=== PATIENT | male | born 1955 | race African-American/Black ===

== ENCOUNTER 2018-06-13 13:33 | Emergency (ER) | payer OTHER ==
[2018-06-13 13:42] VITALS: TEMP 97.8; BMI 39.5
--- NOTE | 2018-06-13 15:05 | PDOC ---
Attending Attestation - Resident Resident Name: JosefaSadie - ED Attending Attestation I have performed the following: I have examined & evaluated the patient, The case was reviewed & discussed with the resident, I agree w/resident's findings & plan, Exceptions are as noted - HPI HPI: 06/13/18 15:04 [id number] presents with insomnia. The patient states that for the past several weeks he has been under a lot of stress at work, states that he has been having difficulty sleeping. States that he normally goes to bed approximate 6:54 PM watching some TV and and drifts off - typically wakes up around midnight unable to go back to sleep. States that he has had a lot on his mind in his mind is going constantly throughout the night making it difficult for him to go back to bed . He has been taking melatonin for the last week sometimes it helps sometimes it doesn't . The patient states that his memory has been poor recently. Patient states he has been undergoing a lot of stress at work prior to this he Follow the same schedule but was able to drift back off to sleep. The pt uli dumont associtaed n/v, visio changes, numbness/weakness/tingling, headache, neck pain, back pain , leg slweling, diarrhea, melena bpr. Pt states he has tried to increase his ecercise. he follows up with PM[facility] at [facility]. GENERAL: The patient is awake, alert, and fully oriented, Nontoxic - in no acute distress. HEAD: Normocephalic, atraumatic. EYES: extraocular movements intact, sclera anicteric, conjunctiva clear. ENT: Normal voice, Moist mucous membranes. NECK: Normal range of motion, supple LUNGS: Breath sounds equal, clear to auscultation bilaterally. No wheezes, no rhonchi, no rales. HEART: Regular rate and rhythm, normal S1 and S2 without murmur, rub or gallop. ABDOMEN: Soft, nontender, No guarding, no rebound. . No CVA tenderness EXTREMITIES: Normal range of motion, no edema. NEUROLOGICAL: No facial assymetry, Normal speech, normal gait. strength symmetric in upper/lower extrmities. PSYCH: Normal mood, normal affect. SKIN: Warm, Dry, normal turgor, Suspect anxiety pt mentioned cp at [facility] but denies it to me - EKG is NSR will reocmmend better sleep hygeine wlil continue melatonin no neuro symptoms / findings. Heart Score/ECG Review - ECG Impressions Comment:: 06/13/18 15:59 Twelve-lead EKG was performed and reviewed by me. There is normal sinus rhythm with a normal rate. Rate of [address]-T wave changes Artifacts present
--- NOTE | 2018-06-13 15:20 | PDOC ---
History of Present Illness - General Chief Complaint: Headache Stated Complaint: Migraine Headache Time Seen by Provider: 06/13/18 14:32 - History of Present Illness Initial Comments: 06/13/18 16:00 Patient is a 62 year old male with past medical history of HTN, presented with difficulty sleeping for a few weeks. Patient reports that he has been continuously anxious and stressed at work, making it difficult for him to sleep as he thinks of a lot of things. He would usually go to bed early, where he would sleep for about 1-2 hours, and wake up at midnight, and stays awake. He has taken melatonin which at times did not help. He attributed lack of sleep with forgetfulness. Patient denies any headaches, dizziness, changes in vision, fevers, chills, chest pain, SOB, abdominal pain or urinary symptoms. Past History - Travel Traveled outside of the country in the last 30 days: No Close contact w/someone who was outside of country & ill: No - Past Medical History Allergies/Adverse Reactions: Allergies Allergy/AdvReac Type Severity Reaction Status Date / Time No Known Allergies Allergy Verified 06/13/18 13:37 Home Medications: Ambulatory Orders NK [No Known Home Medication] 06/13/18 Disorders: Yes (right nephrolithiasis) HTN: Yes - Suicide/Smoking/Psychosocial Hx Smoking History: Never smoked Hx Alcohol Use: No Drug/Substance Use Hx: No Review of Systems - Review of Systems Able to Perform ROS?: Yes Is the patient limited Hungarian proficient: Yes Constitutional: No: Chills, Fever, Weakness HEENTM: No: Blurred Vision, Double Vision Respiratory: No: Cough, Shortness of Breath Cardiac (ROS): No: Chest Pain, Irregular Heart Rate, Palpitations ABD/GI: No: Abdominal Distended, Constipated, Diarrhea : No: Burning, Dysuria, Discharge Musculoskeletal: No: Back Pain, Joint Pain Neurological: No: Headache, Numbness, Tingling *Physical Exam - Vital Signs Last Vital Signs Temp Pulse Resp BP Pulse Ox 97.8 F 94 H 18 167/98 99 06/13/18 13:38 06/13/18 13:38 06/13/18 13:38 06/13/18 13:38 06/13/18 13:38 - Physical Exam General Appearance: Yes: Other (awake, alert, oriented, not in acute distress) HEENT: positive: Other (no signs of head trauma, PERRLA, EOMI, sclerae anicteric , no nasal congestion) Neck: positive: Trachea midline, Supple Respiratory/Chest: positive: Lungs Clear, Normal Breath Sounds Cardiovascular: positive: Regular Rhythm, Regular Rate, S1, S2. negative: Murmur Vascular Pulses: Dorsalis-Pedis (R): 2+, Doralis-Pedis (L): 2+ Gastrointestinal/Abdominal: positive: Normal Bowel Sounds, Soft. 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 negative: Sensory Deficit Heart Score/ECG Review - ECG Impressions Normal ECG: Yes Non-specific ST Elevation: No Medical Decision Making - Medical Decision Making 06/13/18 16:12 Patient is a 62 year old male with past medical history of HTN, presented with difficulty sleeping for a few weeks. Patient reports that he has been continuously anxious and stressed at work, making it difficult for him to sleep as he thinks of a lot of things. He would usually go to bed early, where he would sleep for about 1-2 hours, and wake up at midnight, and stays awake. He has taken melatonin which at times did not help. He attributed lack of sleep with forgetfulness. Patient denies any headaches, dizziness, changes in vision, fevers, chills, chest pain, SOB, abdominal pain or urinary symptoms. General: awake, alert, oriented, not in acute distress Pulm: clear to auscultation bilaterally Cardio: regular rate and rhythm,no murmurs Abdomen: soft, nontender, nondistended, NABS Neuro: CN II-XII intact, normal speech, normal gait, motor 5/5, sensation intact A: Insomnia P: EKG 06/13/18 16:15 Patient for discharge. Counselled patient on proper sleep hygiene. *DC/Admit/Observation/Transfer Diagnosis at time of Disposition: Insomnia Qualifiers: Insomnia type: unspecified Qualified Code(s): G47.00 - Insomnia, unspecified - Discharge Dispostion Disposition: HOME Condition at time of disposition: Stable Decision to Admit order: No - Referrals Referrals: [facility] [place] [facility] [Provider Group] - Patient Instructions Printed Discharge Instructions: DI for Insomnia Additional Instructions: You came in because you had difficulty sleeping. You probably have insomnia. It is important that you observe proper sleep hygiene. Maintain a regular sleep routine and avoid naps if possible. Avoid drinking alcohol or caffeine few hours prior to bedtime. Exercise regularly. Don't watch TV or read in bed. Please follow-up with your primary care physician to discuss further management of your insomia if symptoms . Call 911 or go to the ED if with any worsening headache, dizziness, weakness, forgetfulness, or any new concerns noted. - Post Discharge Activity
[2018-06-13 15:45] VITALS: BP 146/77; PULSE 83
--- NOTE | 2018-06-14 11:36 | EKG ---
Test Reason : Blood Pressure : / mmHG Vent. Rate : 082 BPM Atrial Rate : 082 BPM P-R Int : 178 ms QRS Dur : 096 ms QT Int : 386 ms P-R-T Axes : 035 028 -16 degrees QTc Int : 450 ms NORMAL SINUS RHYTHM NONSPECIFIC ST AND T WAVE ABNORMALITY ABNORMAL ECG Confirmed by Jitendra Dubose MD ([id number]) on 06/14/2018 11:36:39 AM Referred By: Confirmed By:Jitendra Dubose MD
== END 2018-06-13 16:29 | disposition home or self-care (01) ==
LOC: JER 13:33
DX: G47.00 Insomnia, unspecified (principal); I10 Essential (primary) hypertension
CPT/HCPCS: 93005; 93010; 99282-25